=== PATIENT | male | born 1970 | race African-American/Black ===

== ENCOUNTER 2018-03-06 22:01 | Emergency (ER) | payer OTHER ==
[~2018-03-06] VITALS: Ht 165.1 cm; Wt 70.3 kg
[2018-03-06 22:37] VITALS: BP 131/79
[2018-03-07] MEDS ORDERED: DIPHTH,PERTUSS(ACELL),TET TOX 0.5 ML DISP.SYRIN. VAX IM ONE
[2018-03-07] MEDS ORDERED: LIDOCAINE 1% Multi-Dose 20 ML VIAL. INJ ONE
--- NOTE | 2018-03-07 00:10 | PHYS DOC ---
Past Medical History Past Medical History: Hypertension Additional Past Surgical Histo: HERNIA REPAIR Alcohol Use: Occasionally Drug Use: None Adult General Chief Complaint Chief Complaint: LACERATION/AVULSION HPI HPI Patient is a 47 year old male with history of hypertension who presents today complaining of laceration on the left upper extremity. Patient states he fell into the glass window of his garage door as he tried to manually close it, he states the glass window broke. Denies any LOC. Review of Systems Review of Systems Constitutional: Denies fever or chills [] Musculoskeletal: Denies back pain or joint pain [] Integument: Reports left upper extremity laceration[] Neurologic: Denies headache, focal weakness or sensory changes [] All other systems were reviewed and found to be within normal limits, except as documented in this note. Current Medications Current Medications Current Medications Medications (Trade) Dose Ordered Sig/Pete Start Time Stop Time Status Last Admin Dose Admin Diphtheria/ Tetanus/Acell Pertussis (Boostrix) 0.5 ml ONCE ONCE 03/07/18 00:00 03/07/18 00:01 DC 03/06/18 23:53 0.5 ML Lidocaine HCl (Lidocaine 1% 20ml Vial) 20 ml 1X ONCE 03/07/18 00:00 03/07/18 00:01 DC 03/06/18 23:51 20 ML Allergies Allergies Allergies Coded Allergies Type Severity Reaction Last Updated Verified No Known Drug Allergies 03/06/18 No Physical Exam Physical Exam Constitutional: Well developed, well nourished, no acute distress, non-toxic appearance. [] Skin: Warm, dry, left triceps distal end with a laceration approximately 2 cm long, this no obvious tendon involvement. Patient able to flex and extend the left elbow and shoulder with no difficulties. Adequate radial medial and ulnar sensation to the left upper extremity. +2 left radial pulse. Back: No tenderness, no CVA tenderness. [] Extremities: No tenderness, no cyanosis, no clubbing, ROM intact, no edema. [] Neurologic: Alert and oriented X 3, normal motor function, normal sensory function, no focal deficits noted. [] Psychologic: Affect normal, judgement normal, mood normal. [] Current Patient Data Vital Signs Vital Signs Date Time Temp Pulse Resp B/P (MAP) Pulse Ox O2 Delivery O2 Flow Rate FiO2 03/06/18 22:37 98.4 69 16 131/79 (96) 98 Room Air 98.4 EKG EKG [] Radiology/Procedures Radiology/Procedures Laceration/Wound Repair Wound Location: Left upper extremity Wound's Depth, Shape: Horizontal Wound Length (cm): Approximately 2 cm Wound Explored: clean Irrigated w/ Saline (ccs): Yes Betadine Prep?: Yes Anesthesia: 1% buffered lidocaine Volume Anesthetic (ccs): Approximately 2 mL Wound Repaired With: Ethilon Suture Size/Type: 5.0/5 interrupted sutures Progress : Wound was covered with nonstick dressing Course & Med Decision Making Course & Med Decision Making Pertinent Labs and Imaging studies reviewed. (See chart for details) Patient has left upper extremity laceration that was closed by me as noted in procedures. Tetanus updated. Wound care instructions and return precautions provided. Dragon Disclaimer Dragon Disclaimer This electronic medical record was generated, in whole or in part, using a voice recognition dictation system. Departure Departure Impression: Primary Impression: Laceration of left upper extremity Disposition: 01 HOME, SELF-CARE Condition: STABLE Referrals: NO PCP (PCP) Follow-up with the emergency room in 7-10 days for suture removal Patient Instructions: Laceration Care, Adult Additional Instructions: You have a laceration to the left upper extremity that was closed with stitches , you can shower. Keep the area clean and dry. Apply Neosporin to the area twice a day. Monitor the area for any signs of infection including increased redness, warmth, yellow drainage from the area and return to the ED if they occur. Return to the emergency room or see your doctor in 7-10 days for suture removal. Problem Qualifiers Primary Impression: Laceration of left upper extremity Encounter type: initial encounter Qualified Codes: S41.112A - Laceration without foreign body of left upper arm, initial encounter NICOLE BRICE WARPER CREELER Mar 07, 2018 00:10
== END 2018-03-07 00:24 | disposition home or self-care (01) ==
LOC: ER 22:01 → EDBD 22:01 → ER 03-07 00:24
DX: S61.412A Laceration without foreign body of left hand, initial encounter (principal); I10 Essential (primary) hypertension; W18.02XA Striking against glass with subsequent fall, initial encounter; Y93.F9 Activity, other caregiving; Y92.89 Other specified places as the place of occurrence of the external cause; Y99.8 Other external cause status
CPT/HCPCS: 12001; 90471; 90715; 99283-25

== ENCOUNTER 2018-03-15 07:17 | Emergency (ER) | payer OTHER ==
[~2018-03-15] VITALS: Ht 165.1 cm; Wt 70.3 kg
[2018-03-15 07:20] VITALS: BP 138/89
--- NOTE | 2018-03-15 07:32 | PHYS DOC ---
Past Medical History Past Medical History: Hypertension Additional Past Surgical Histo: HERNIA REPAIR Alcohol Use: Occasionally Drug Use: None Adult General Chief Complaint Chief Complaint: SUTURE/STAPLE REMOVAL [facility] HPI Patient is a 47 year old male who presented to ER today for evaluation of suture removal. Patient has this suture in for 10 days on left elbow. He denies any fever, he can move elbow without a problem. Review of Systems Review of Systems Constitutional: Denies fever or chills [] Eyes: Denies change in visual acuity, redness, or eye pain [] HENT: Denies nasal congestion or sore throat [] Respiratory: Denies cough or shortness of breath [] Cardiovascular: No additional information not addressed in HPI [] GI: Denies abdominal pain, nausea, vomiting, bloody stools or diarrhea [] : Denies dysuria or hematuria [] Musculoskeletal: Denies back pain or joint pain [] Integument: Denies rash or skin lesions [] Neurologic: Denies headache, focal weakness or sensory changes [] Endocrine: Denies polyuria or polydipsia [] All other systems were reviewed and found to be within normal limits, except as documented in this note. Allergies Allergies Allergies Coded Allergies Type Severity Reaction Last Updated Verified No Known Drug Allergies 03/06/18 No Physical Exam Physical Exam Constitutional: Well developed, well nourished, no acute distress, non-toxic appearance. [] Skin: Warm, dry, no erythema, no rash. HEALED WOUND ON LEFT ELBOW WITH [address] Extremities: No tenderness, no cyanosis, no clubbing, ROM intact, no edema. [] Neurologic: Alert and oriented X 3, normal motor function, normal sensory function, no focal deficits noted. [] Psychologic: Affect normal, judgement normal, mood normal. [] EKG EKG [] Radiology/Procedures Radiology/Procedures [] Course & Med Decision Making Course & Med Decision Making Pertinent Labs and Imaging studies reviewed. (See chart for details) sutures removal: 5 sutures were removed without any problem by this provider. Dragon Disclaimer Dragon Disclaimer This electronic medical record was generated, in whole or in part, using a voice recognition dictation system. Departure Departure Impression: Primary Impression: Encounter for removal of sutures Disposition: HOME, SELF-CARE Condition: STABLE Referrals: NO PCP (PCP) Patient Instructions: Suture Removal-Brief MIKAYLA SHAIKH DO Mar 15, 2018 07:32
== END 2018-03-15 07:35 | disposition home or self-care (01) ==
LOC: ER 07:17
DX: S51.012D Laceration without foreign body of left elbow, subsequent encounter (principal); I10 Essential (primary) hypertension; X58.XXXD Exposure to other specified factors, subsequent encounter
CPT/HCPCS: 99281